=== PATIENT | male | born 1970 | race Two or more races ===

== ENCOUNTER 2022-09-15 14:03 | Inpatient (IN) | payer MEDICAID, OTHER ==
[~2022-09-15] VITALS: Ht 172.7 cm; Wt 85.8 kg
[2022-09-15 15:07] LABS: BASOPHILS % (AUTO) 0.6 % (0.0-2.0); EOSINOPHILS % (AUTO) 2.3 % (1.0-6.0); HEMATOCRIT 41.6 % (41-53); LYMPHOCYTES # (AUTO) 1.6 K/uL (1.0-4.8); LYMPHOCYTES % (AUTO) 16.4 % (22.0-44.0); MEAN CORPUSCULAR HEMOGLOBIN 21.8 pg (26.0-34.0); MEAN CORPUSCULAR HGB CONC 31.3 G/dL (31.0-37.0); MEAN CORPUSCULAR VOLUME 70 fL (80-100); MONOCYTES # (AUTO) 0.9 K/uL (0.1-1.0); MONOCYTES % (AUTO) 9.2 % (2.0-9.0); NEUTROPHILS # (AUTO) 6.9 K/uL (1.8-7.7); NEUTROPHILS % (AUTO) 71.5 % (40.0-70.0); PLATELET COUNT (AUTO) 333 K/uL (150-450); RED BLOOD CELL COUNT(AUTO) 5.97 MIL/uL (4.50-5.90); RED CELL DISTRIBUTION WIDTH 15.1 % (11.5-14.5)
[2022-09-15 15:19] LABS: ANION GAP 6 mmol/L (8-16); CALCIUM, TOTAL 8.8 mg/dL (8.8-10.5); CARBON DIOXIDE 29 mmol/L (22-29); CHLORIDE 101 mmol/L (98-107); CREATININE 1.21 mg/dL (0.60-1.30); GLOMERULAR FILTR. RATE CALC > 60 mL/min (>60); GLUCOSE,RANDOM 104 mg/dL (70-110); POTASSIUM 3.9 mmol/L (3.5-5.1); SODIUM SERUM 136 mmol/L (136-145)
[2022-09-15 15:21] LABS: COVID AG,FIA SOURCE NASOPHARYNGEAL
[2022-09-15 15:23] LABS: ALANINE AMINOTRANSFERASE 27 U/L (12-78); ALBUMIN 3.5 g/dL (3.4-5.0); ALKALINE PHOSPHATASE 107 U/L (46-116); ASPARTATE AMINOTRANSFERASE 13 U/L (15-37); BILIRUBIN,TOTAL 0.7 mg/dL (0.1-1.0); TOTAL PROTEIN, SERUM 7.9 g/dL (6.4-8.2)
[2022-09-15] MEDS ORDERED: HALOPERIDOL 5 MG TABLET PO PRN (17:00)
[2022-09-15] MEDS ORDERED: ZOLPIDEM TARTRATE 10 MG TABLET PO PRN (17:00)
[2022-09-15 22:45] VITALS: BP 113/76
[2022-09-16] MEDS ORDERED: ACETAMINOPHEN 325 MG TABLET PO PRN (06:45)
[2022-09-16] MEDS ORDERED: PETROLATUM,WHITE 28 GM JELLY TP PRN (06:45)
[2022-09-16] MEDS ORDERED: DOCUSATE SODIUM 100 MG CAPSULE PO PRN (06:45)
[2022-09-16] MEDS ORDERED: CloNIDine HCL 0.1 MG TABLET PO PRN (06:45)
[2022-09-16] MEDS ORDERED: MAGNESIUM HYDROXIDE SUSPENSION 30 ML UDCUP PO PRN (06:45)
[2022-09-16] MEDS ORDERED: MAG HYDROX/AL HYDROX/SIMETH ES 30 ML SUSPENSION UDCUP PO PRN (06:45)
[2022-09-16] MEDS ORDERED: ONDANSETRON HCL 4 MG TABLET PO PRN (06:45)
[2022-09-16] MEDS ORDERED: LOPERAMIDE HCL 2 MG CAPSULE PO PRN (06:45)
[2022-09-16] MEDS ORDERED: IBUPROFEN 400 MG TABLET PO PRN (06:45)
[2022-09-16] MEDS ORDERED: GuaiFENesin/D-METHORPHAN [SUGAR-FREE] 200-20MG/10 ML SYRUP UDCUP PO PRN (06:45)
[2022-09-16] MEDS ORDERED: ALBUTEROL SULFATE HFA 90 MCG/PUFF 8 GM INHALER IH PRN (06:45)
[2022-09-16] MEDS ORDERED: NICOTINE 14 MG/24 HOUR PATCH TD PRN (06:45)
[2022-09-16 08:28] VITALS: BP 111/69
[2022-09-16 16:22] VITALS: BP 116/70
[2022-09-16] MEDS: AMOX TR/POT CLAV 500 MG/125 MG TABLET PO SCH (17:05)
[2022-09-16] MEDS: BACITRACIN 28 GM OINTMENT TP SCH (17:05)
[2022-09-16] MEDS: OLANZapine 10 MG TABLET PO SCH (20:43)
[2022-09-17] MEDS: OLANZapine 10 MG TABLET PO SCH ×2 (08:19→21:12)
[2022-09-17] MEDS: AMOX TR/POT CLAV 500 MG/125 MG TABLET PO SCH ×2 (08:19→18:11)
[2022-09-17] MEDS: BACITRACIN 28 GM OINTMENT TP SCH ×2 (08:20→18:12)
[2022-09-17 08:48] VITALS: BP 114/60
[2022-09-17 16:01] VITALS: BP 120/70
[2022-09-18 00:05] VITALS: BP 110/67
[2022-09-18 08:35] VITALS: BP 102/76
[2022-09-18] MEDS: AMOX TR/POT CLAV 500 MG/125 MG TABLET PO SCH ×2 (08:43→17:00)
[2022-09-18] MEDS: BACITRACIN 28 GM OINTMENT TP SCH ×2 (08:43→17:01)
[2022-09-18] MEDS: OLANZapine 10 MG TABLET PO SCH ×2 (08:43→20:42)
[2022-09-18 16:09] VITALS: BP 105/81
[2022-09-19 00:31] VITALS: BP 119/73
[2022-09-19 08:31] VITALS: BP 111/61
[2022-09-19] MEDS: AMOX TR/POT CLAV 500 MG/125 MG TABLET PO SCH ×2 (08:38→16:43)
[2022-09-19] MEDS: BACITRACIN 28 GM OINTMENT TP SCH ×2 (08:38→16:43)
[2022-09-19] MEDS: OLANZapine 10 MG TABLET PO SCH ×2 (08:43→20:58)
[2022-09-19 16:47] VITALS: BP 108/65
[2022-09-20 04:38] VITALS: BP 124/64
[2022-09-20 08:09] VITALS: BP 113/70
[2022-09-20] MEDS: OLANZapine 10 MG TABLET PO SCH ×2 (08:33→20:34)
[2022-09-20] MEDS: AMOX TR/POT CLAV 500 MG/125 MG TABLET PO SCH ×2 (08:33→16:30)
[2022-09-20] MEDS: BACITRACIN 28 GM OINTMENT TP SCH ×2 (08:33→16:30)
[2022-09-20 16:25] VITALS: BP 101/63
[2022-09-21] MEDS: OLANZapine 10 MG TABLET PO SCH ×3 (08:33→20:24)
[2022-09-21] MEDS: AMOX TR/POT CLAV 500 MG/125 MG TABLET PO SCH ×2 (08:33→16:44)
[2022-09-21] MEDS: BACITRACIN 28 GM OINTMENT TP SCH ×2 (08:34→16:44)
[2022-09-21 08:41] VITALS: BP 149/74
[2022-09-21 21:21] VITALS: BP 138/70
[2022-09-22] VITALS (8 sets, daily range): BP systolic 101–145; BP diastolic 53–80
[2022-09-22] MEDS: AMOX TR/POT CLAV 500 MG/125 MG TABLET PO SCH ×2 (08:49→16:20)
[2022-09-22] MEDS: OLANZapine 10 MG TABLET PO SCH ×4 (08:49→21:00)
[2022-09-22] MEDS: BACITRACIN 28 GM OINTMENT TP SCH ×2 (08:49→16:20)
[2022-09-22] MEDS: LORazepam 2 MG TABLET PO PRN ×2 (09:05→16:20)
[2022-09-22] MEDS ORDERED: LORazepam 2 MG/ML VIAL IM ONE (18:00)
[2022-09-22] MEDS ORDERED: DiphenhydrAMINE HCL 50 MG/ML VIAL IM ONE (18:00)
[2022-09-22] MEDS ORDERED: HALOPERIDOL LACTATE 5 MG/ML VIAL IM ONE (18:00)
[2022-09-23] MEDS: AMOX TR/POT CLAV 500 MG/125 MG TABLET PO SCH (08:06)
[2022-09-23] MEDS: BACITRACIN 28 GM OINTMENT TP SCH ×2 (08:06→16:18)
[2022-09-23] MEDS: OLANZapine 10 MG TABLET PO SCH ×2 (08:06→20:03)
[2022-09-23 08:33] VITALS: BP 100/60
[2022-09-23 20:24] VITALS: BP 109/68
[2022-09-24] MEDS: BACITRACIN 28 GM OINTMENT TP SCH ×2 (08:19→17:01)
[2022-09-24] MEDS: OLANZapine 10 MG TABLET PO SCH ×2 (08:19→20:29)
[2022-09-24 08:32] VITALS: BP 109/62
[2022-09-24 20:23] VITALS: BP 134/82
[2022-09-25 08:06] VITALS: BP 104/62
[2022-09-25] MEDS: OLANZapine 10 MG TABLET PO SCH ×2 (08:20→20:16)
[2022-09-25] MEDS: BACITRACIN 28 GM OINTMENT TP SCH ×2 (08:21→17:03)
[2022-09-25 20:16] VITALS: BP 96/60
[2022-09-26] MEDS: BACITRACIN 28 GM OINTMENT TP SCH ×2 (08:14→16:42)
[2022-09-26] MEDS: OLANZapine 10 MG TABLET PO SCH ×2 (08:14→21:00)
[2022-09-26 08:45] VITALS: BP 110/64
[2022-09-26 23:28] VITALS: BP 115/69
[2022-09-27] MEDS: BACITRACIN 28 GM OINTMENT TP SCH ×2 (08:04→16:44)
[2022-09-27] MEDS: OLANZapine 10 MG TABLET PO SCH ×2 (08:04→20:51)
[2022-09-27 08:36] VITALS: BP 123/59
[2022-09-27 20:22] VITALS: BP 108/61
[2022-09-28] MEDS: OLANZapine 10 MG TABLET PO SCH ×2 (08:06→20:23)
[2022-09-28] MEDS: BACITRACIN 28 GM OINTMENT TP SCH ×2 (08:06→17:09)
[2022-09-28 08:25] VITALS: BP 112/60
[2022-09-28 20:34] VITALS: BP 103/60
[2022-09-29 08:08] VITALS: BP 114/65
[2022-09-29] MEDS: BACITRACIN 28 GM OINTMENT TP SCH ×2 (08:13→17:13)
[2022-09-29] MEDS: OLANZapine 10 MG TABLET PO SCH ×2 (08:13→20:14)
[2022-09-29 20:10] VITALS: BP 114/64
[2022-09-30] MEDS: OLANZapine 10 MG TABLET PO SCH ×2 (08:14→20:29)
[2022-09-30] MEDS: BACITRACIN 28 GM OINTMENT TP SCH ×2 (08:35→16:56)
[2022-09-30 08:44] VITALS: BP 139/75
[2022-09-30 21:34] VITALS: BP 113/65
[2022-10-01] MEDS: OLANZapine 10 MG TABLET PO SCH (08:15)
[2022-10-01 08:30] VITALS: BP 119/83
[2022-10-01] MEDS ORDERED: OLAN10TA74 PO (08:32)
[2022-10-01] MEDS: BACITRACIN 28 GM OINTMENT TP SCH (08:37)
[2022-10-01] MEDS ORDERED: OLAN10 PO (12:07)
== END 2022-10-01 12:45 | disposition home or self-care (01) | DRG 750 ==
LOC: EDUNIT# 14:03 → EDBD 14:21 → EMS 14:21 → B3A 19:23 → B2S 22:18 → B3A 09-21 17:54
PROVIDERS: ADMIT Psychiatry & Neurology Child & Adolescent Psychiatry; ATTEND Psychiatry & Neurology Child & Adolescent Psychiatry
DX: F25.9 Schizoaffective disorder, unspecified (principal); D64.9 Anemia, unspecified; G47.00 Insomnia, unspecified; Z20.822 Contact with and (suspected) exposure to COVID-19
CPT/HCPCS: 80053; 85025; 99285; G0480; J1200; J1630; J2060

== ENCOUNTER 2022-09-23 01:42 | Emergency (ER) | payer MEDICAID, OTHER ==
[~2022-09-23] VITALS: Ht 167.6 cm; Wt 85.0 kg
[2022-09-23] MEDS ORDERED: KETAMINE HCL 50 MG/ML 10 ML VIAL IVP ONE (03:15)
[2022-09-23 04:30] VITALS: BP 134/80
== END 2022-09-23 04:32 | disposition home or self-care (01) ==
LOC: EMS 01:43
DX: F25.9 Schizoaffective disorder, unspecified (principal); S09.90XA Unspecified injury of head, initial encounter; Z98.890 Other specified postprocedural states; W50.0XXA Accidental hit or strike by another person, initial encounter; Y93.89 Activity, other specified; Y92.89 Other specified places as the place of occurrence of the external cause; Y99.8 Other external cause status
CPT/HCPCS: 99285; 70450; 99152; J3490